=== PATIENT | male | born 1975 | race Two or more races ===

== ENCOUNTER 2018-05-25 12:28 | Emergency (ER) | payer SELFPAY ==
[2018-05-25] MEDS ORDERED: ACETAMINOPHEN 500 MG TABLET PO STA (13:26)
[2018-05-25] MEDS ORDERED: IBUPROFEN 800 MG TABLET PO STA (13:26)
[2018-05-25] MEDS ORDERED: ONDANSETRON ODT 4 MG TABLET TL STA (13:26)
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
[2018-05-25 15:25] VITALS: BP 120/69
== END 2018-05-25 15:23 | disposition home or self-care (01) ==
LOC: ED 12:28
DX: S00.03XA Contusion of scalp, initial encounter (principal); S06.0X0A Concussion without loss of consciousness, initial encounter; W22.8XXA Striking against or struck by other objects, initial encounter
CPT/HCPCS: 70450; 99283; A9270; Q0162